=== PATIENT | female | born 1965 | race Caucasian/White ===

== ENCOUNTER 2017-10-17 09:37 | Day surgery (SDC) | payer OTHER ==
[2017-10-17] MEDS ORDERED: MIDAZOLAM 1 MG/ML 2 ML INJ ×3 (12:42→15:28)
[2017-10-17] MEDS ORDERED: FENTAnyl 50 MCG/ML VIAL (12:43)
== END 2017-10-17 13:52 | disposition home or self-care (01) ==
LOC: GIL 09:37
DX: Z12.11 Encounter for screening for malignant neoplasm of colon (principal); K64.8 Other hemorrhoids; I10 Essential (primary) hypertension; E78.5 Hyperlipidemia, unspecified; F17.200 Nicotine dependence, unspecified, uncomplicated
CPT/HCPCS: 45378; 84703